=== PATIENT | male | born 1980 | race Caucasian/White ===

== ENCOUNTER 2022-03-29 07:32 | Outpatient (CLI) | payer BC, SELFPAY | END 2022-03-29 07:33 | disposition home or self-care (01) | LOC: INJ CL 07:37 | PROVIDERS: PCP Family Medicine; Visit Provider Family Medicine | DX: M54.16 Radiculopathy, lumbar region (principal) | CPT/HCPCS: 64483; J1100; Q9966 ==

== ENCOUNTER 2022-08-09 15:30 | Outpatient (RCR) | payer BC, SELFPAY | END 2022-11-18 08:06 | disposition home or self-care (01) | PROVIDERS: PCP Family Medicine; Visit Provider Physician Assistant Surgical | DX: M54.16 Radiculopathy, lumbar region (principal); M54.50 Low back pain, unspecified; M62.81 Muscle weakness (generalized); Z51.89 Encounter for other specified aftercare | CPT/HCPCS: 97110; 97112; 97161 ==